=== PATIENT | female | born 1985 | race Caucasian/White ===

== ENCOUNTER 2017-12-26 00:30 | Inpatient (IN) | payer BC, OTHER, SELFPAY ==
[2017-12-26] MEDS ORDERED: Fentanyl 100 MCG/2 ML VIAL ONE ×3 (01:16→04:10)
[2017-12-26] MEDS ORDERED: Midazolam HCl 2 mg/2 ml Vial ONE (01:16)
[2017-12-26] MEDS: CEFAZOLIN/Water 2 GM/20 ML SYRINGE SLOW IVP SCH ×2 (01:20→03:56)
[2017-12-26] MEDS ORDERED: CEFAZOLIN 1 GM VIAL ONE (01:25)
[2017-12-26] MEDS ORDERED: Oxytocin 10 UNITS/ML VIAL ONE ×2 (01:34→09:00)
[2017-12-26 01:47] LABS: Actual Bicarbonate (HCO3a) 20.6 mEq/L (22-26); Base Excess (BEa) -4.9 mEq/L (0 (+/-) 2.5)
[2017-12-26] MEDS ORDERED: Morphine CADD 1 MG/ML CADD IVPB PRN (01:52)
[2017-12-26] MEDS ORDERED: diphenhydrAMINE 50 MG/ML VIAL IVP PRN (01:52)
[2017-12-26] MEDS ORDERED: diphenhydrAMINE 50 MG/ML VIAL IM PRN (01:52)
[2017-12-26] MEDS ORDERED: Zolpidem Tartrate 5 MG TAB PO PRN (01:52)
[2017-12-26] MEDS ORDERED: Naloxone HCl 0.4 mg/ml Vial IV PRN (01:52)
[2017-12-26] MEDS ORDERED: diphenhydrAMINE 25 MG CAP PO PRN (01:52)
[2017-12-26] MEDS ORDERED: Ondansetron HCl/PF 4 MG/2 ML Vial IVP PRN ×3 (01:52→01:58)
[2017-12-26] MEDS ORDERED: Promethazine HCl 25 MG/ML VIAL IM PRN ×2 (01:52→01:58)
[2017-12-26] MEDS ORDERED: Ketorolac Tromethamine 30 MG/ML VIAL ONE ×2 (01:54→15:49)
[2017-12-26] MEDS ORDERED: Ondansetron HCl/PF 4 MG/2 ML Vial ONE ×2 (01:54→15:49)
[2017-12-26] MEDS ORDERED: Misoprostol 200 MCG TAB ONE (01:56)
[2017-12-26] MEDS ORDERED: Meperidine HCl/PF 25 MG/ML VIAL SLOW IVP PRN (01:56)
[2017-12-26] MEDS ORDERED: Lactated Ringer's 1,000 ML IV SCH (01:58)
[2017-12-26] MEDS ORDERED: Bicitra 30 ML UDCUP PO SCH (02:00)
[2017-12-26] MEDS ORDERED: Communication Order-Pharmacy FS SCH (02:00)
[2017-12-26 02:08] LABS: Hemoglobin 9.8 g/dL (12.0-16.0); Mean Corpuscular Hemoglobin 27.3 pg (27.0-31.0); Mean Corpuscular Volume 82.9 fl (81.0-99.0); Mean Platelet Volume 8.2 fL (7.4-10.4); Platelet Count 271 thou/uL (130-400); RBC Distribution Width 15.2 % (11.5-14.5); Red Blood Cell (RBC) Count 3.59 mill/uL (4.20-5.40); White Blood Cell (WBC) Count 23.8 thou/uL (4.8-10.8)
[2017-12-26 02:35] LABS: HIV (1/2) Antibody/Antigen Non-Reactive (NonReactive); Hep B Surf Ag Non-Reactive S/CO (NonReactive)
[2017-12-26] MEDS ORDERED: Meperidine HCl/PF 25 MG/ML VIAL ONE (02:40)
[2017-12-26] MEDS ORDERED: LR / Pitocin 40 units/1000 ml 1,000 ML ONE (03:12)
[2017-12-26] MEDS ORDERED: LR w/ Pitocin 40 units/1000 ML BAG IV SCH (03:15)
[2017-12-26] MEDS ORDERED: HYDROcodone/Acetaminophen 5/325 mg Tablet PO PRN (03:15)
[2017-12-26] MEDS ORDERED: Lanolin Ointment 7 GM TUBE TOP PRN (03:15)
[2017-12-26] MEDS ORDERED: Adacel (T-DAP) 0.5 ML VIAL IM ONE (03:15)
[2017-12-26] MEDS ORDERED: Meperidine HCl/PF 25 MG/ML VIAL SLOW IVP SCH (03:30)
[2017-12-26] MEDS ORDERED: Misoprostol 100 MCG TAB FS SCH (03:45)
[2017-12-26] MEDS ORDERED: Fentanyl 100 MCG/2 ML VIAL SLOW IVP SCH (04:00)
[2017-12-26] MEDS: LR / Pitocin 40 units/1000 ml 40 UNITS/1,000 ML BAG IV SCH ×3 (04:00→19:28)
--- NOTE | 2017-12-26 04:16 | HP ---
DATE OF ADMISSION: 12/26/2017 ADMITTING PHYSICIAN: Reynaldo Osei M.D. CHIEF COMPLAINT: Laboring at home with commercial marketing specialist, cervix swelling. HISTORY OF PRESENT ILLNESS: Ms. Jiménez is a 32-year-old estimated date of confinement 12/21/2017 who presents to the hospital with care by Jennifer Garcia who states that the patient has been laboring for 3 days. She apparently became complete or at least almost with her, she pushed and now her cervix is swollen. She presents to the hospital now for management options. Of note is the fact that of note is the fact that her water has been ruptured for over 24 hours. PAST OBSTETRICAL HISTORY: Includes 2 previous sections. PAST MEDICAL HISTORY: Unremarkable. PAST SURGICAL HISTORY: Two previous C-sections. ALLERGIES: No known allergies. SOCIAL HISTORY: Denies tobacco or alcohol use. MEDICATIONS: vitamins. PHYSICAL EXAMINATION: VITAL SIGNS: Stable. She is afebrile. LUNGS: Chest is clear to auscultation. CARDIOVASCULAR: Regular rate and rhythm. ABDOMEN: Soft and nontender. PELVIC: Cervix is 7 cm dilated and swollen. heart tones are in the 170s. Regular uterine contractions are seen. ASSESSMENT: 1. Term intrauterine in labor. 2. Poor progress. 3. Two previous sections. PLAN: At this time, my advice is to proceed with repeat section. The risks of the procedure including anesthesia, bleeding, infection as well as damage to adjacent organs, requiring repair, removal or transfusion were discussed with her in detail. She wishes to proceed. ASHLEY
--- NOTE | 2017-12-26 04:21 | OP ---
DATE OF PROCEDURE: 12/26/2017 PREOPERATIVE DIAGNOSES: 1. Term intrauterine in labor. 2. Active phase arrest. 3. distress. POSTOPERATIVE DIAGNOSES: 1. Term intrauterine in labor. 2. Active phase arrest. 3. distress. SURGEON: Reynaldo Osei M.D. IMAGING ACCOUNT MANAGER SURGEON: Colleen Lin D.O. ANESTHESIA: General endotracheal. ESTIMATED BLOOD LOSS: 800 mL. COMPLICATIONS: None. FINDINGS: 1. Viable male , weight 8 pounds 10 ounces found in the transverse position with Apgars 6 and 9, thick meconium noted. 2. Normal uterus and tubes and ovaries. PROPHYLAXIS: 2 grams Ancef given just before incision. BRIEF PATIENT DESCRIPTION AND TECHNIQUE: Ms. Jiménez is a patient had been labored by Jennifer Garcia, registered midwife, who presented with labor of 3 days. No progress and reportedly swollen cervix. She was examined, found to have a thick cervix at 7 cm and the baby was noted to be tachycardic in the 170s. The patient requested that I continue to labor her, and I told her that I was uncomfortable with this and recommended that she have her repeat and she would had 2 previous C-sections prior. The registered midwife and the were dissatisfied with this and asked for a second opinion, but it was about at this time the patient had a profound bradycardia and decision was made to proceed with stat . The patient was in agreement with this. TECHNIQUE IN DETAIL: After good general endotracheal anesthesia was achieved, the patient has been prepped prior to that and the abdomen was rapidly opened through a previously existing Pfannenstiel scar. The peritoneal cavity was entered and a bladder flap was made. A transverse incision was made over a thin lower uterine segment. The baby was delivered from the transverse position with thick meconium. The cord was clamped and cut. Cord gases and cord blood were obtained. The baby was placed on the warmer with the aerial gunner superintendent present. Placenta was then removed. The uterus was closed first with a suture of 0 Monocryl followed by interrupted chromic sutures for complete hemostasis. The uterus was initially extremely boggy but responded to Pitocin infusion. The uterus was replaced into the abdominal cavity and the pelvic gutters were thoroughly irrigated. The fascia was then closed using continuous PDS suture. The subcutaneous tissue was thoroughly irrigated and made dry using Bovie coagulation technique. The skin was closed with metal rob. Sponge, lap, and needle counts were correct. The patient tolerated the procedure well and was taken to the recovery room in good condition. ASHLEY
[2017-12-26 04:24] LABS: Syphilis Antibody Nonreactive (Nonreactive); Syphilis Antibody Index 0.04 S/CO (<1.00 Non-Reactive)
[2017-12-26 04:39] VITALS: BMI 33.5
[2017-12-26] MEDS ORDERED: CEFAZOLIN 1 GM VIAL SLOW IVP SCH (06:00)
--- NOTE | 2017-12-26 06:15 | PDOC.PP ---
Post Progress Note Post Day #: DOS Subjective: Resting comfortably after C/S. PO intake tolerated: no Flatus: no Ambulation: no Weight Weight 83.007 kg VSS AF - Physical Examination Respiratory: non-labored breathing Abdominal: no distention Fundus firm & at: below umbilicus Extremities: negative homans (B) Skin: CS incision dry & intact Result Diagrams: 12/26/17 01:29 Additional Labs: Post Labs Blood Type O POSITIVE 12/26/17 01:29 Hep Bs Antigen Non-Reactive S/CO (NonReactive) 12/26/17 01:29 Assessment/Plan - Assessment/Plan Plan: Stable postop. Routine care
[2017-12-26 07:02] LABS: Mean Corpuscular HGB CONC 32.8 g/dL (32.0-36.0); Mean Corpuscular Volume 82.4 fl (81.0-99.0); Mean Platelet Volume 7.6 fL (7.4-10.4); Platelet Count 240 thou/uL (130-400); Red Blood Cell (RBC) Count 2.98 mill/uL (4.20-5.40); White Blood Cell (WBC) Count 21.9 thou/uL (4.8-10.8)
[2017-12-26] MEDS ORDERED: Sodium Chloride 0.9% 500 ML IV SCH (07:45)
[2017-12-26 07:51] LABS: Band 20 % (5-11); Lymphocytes 9 % (21-51); MDiff Complete? YES; Monocytes 8 % (0-10); Neutrophil 63 % (42-75); Polychromasia SLIGHT = 2-3 cells (100X) (0-2/hpf)
[2017-12-26] MEDS: Lactated Ringer's 1,000 ML IV SCH ×3 (07:59→19:28)
[2017-12-26] MEDS: Misoprostol 200 MCG TAB PR SCH ×3 (08:00→19:28)
[2017-12-26] MEDS: CEFAZOLIN 1 GM, Syringe 2.5 ML in Sterile Water 7.5 ML SLOW IVP SCH ×2 (08:08→16:06)
[2017-12-26] MEDS: Docusate Calcium (SURFAK) 240 MG CAP PO SCH ×2 (08:08→22:50)
[2017-12-26] MEDS ORDERED: PHENYLEPHRINE-NS 100 MCG/ML 10 ML SYRINGE ONE (09:00)
[2017-12-26] MEDS ORDERED: PROPOFOL 200 MG/20 ML VIAL ONE ×2 (09:00→15:49)
[2017-12-26] MEDS ORDERED: Succinylcholine Chloride 20 MG/ML 10 ml SYRINGE FS ONE ×2 (09:00→15:49)
[2017-12-26] MEDS: Ketorolac Tromethamine 30 MG/ML VIAL IVP PRN ×2 (10:47→16:20)
[2017-12-26] MEDS: Simethicone Chewable 80 MG TAB PO PRN ×3 (10:47→22:48)
[2017-12-26] MEDS: Acetaminophen/Codeine 30-300mg Tablet PO PRN ×2 (16:05→22:48)
[2017-12-26] MEDS ORDERED: Ibuprofen 800 MG TAB PO SCH (22:45)
[2017-12-26] MEDS: Cepastat Lozenges 1 LOZ PO PRN (23:05)
[2017-12-27] MEDS ORDERED: Sodium Chloride 0.9% 10 ML ONE (00:01)
[2017-12-27] MEDS: Lactated Ringer's 1,000 ML IV SCH ×3 (02:06→19:08)
[2017-12-27] MEDS: LR / Pitocin 40 units/1000 ml 40 UNITS/1,000 ML BAG IV SCH ×3 (05:32→21:26)
[2017-12-27 05:37] LABS: Mean Corpuscular HGB CONC 31.8 g/dL (32.0-36.0); Mean Corpuscular Volume 84.9 fl (81.0-99.0); Mean Platelet Volume 7.4 fL (7.4-10.4); Platelet Count 196 thou/uL (130-400); RBC Distribution Width 15.2 % (11.5-14.5); White Blood Cell (WBC) Count 15.4 thou/uL (4.8-10.8)
[2017-12-27] MEDS: Ibuprofen 800 MG TAB PO SCH ×3 (06:08→21:38)
[2017-12-27] MEDS: Acetaminophen/Codeine 30-300mg Tablet PO PRN ×3 (06:10→19:10)
[2017-12-27] MEDS: Cepastat Lozenges 1 LOZ PO PRN ×2 (06:13→12:40)
--- NOTE | 2017-12-27 08:09 | PRG ---
DATE OF SERVICE: 12/27/2017 PRIMARY OB: Orthotic And Prosthetic Technician, Jennifer Garcia The patient is a 32-year-old G3 now P3 female who presented to Labor and Delivery after arrest of lab or at home and subsequently had a repeat for nonreassuring heart tones. She is now p ostoperative day #1. The patient reports she is having decreased lochia, good pain control. She has not ambulated yet outside her room and has been able to void. The patient denies any chest pain, sh ortness of breath, dizziness or lightheadedness. PHYSICAL EXAMINATION:: VITAL SIGNS: Blood pressure is 89/52, temperature 98.5, pulse is 76, respiratory rate is 16. GENERAL: She appears to be in no acute distress. She is alert and oriented, and cooperative and ple asant to interact with. HEENT: Head is normocephalic, atraumatic. ABDOMEN: Fundus is firm. Incision is clean, dry, and intact. EXTREMITIES: Nontender, nonedematous. Her hemoglobin this morning is 7.0, hematocrit 22.0, platelets 196,000. ASSESSMENT AND PLAN: The patient is a 32-year-old female postop day 1, status post a repeat C-sectio n for nonreassuring heart tones. The patient has a significant anemia at 7 and 22 which is how ever, an appropriate drop from 9.8 after a . The patient is asymptomatic at this time. I nicky brewster counseled her to notify staff should she experience excessive fatigue, shortness of breath, chest pain, dizziness, lightheadedness. We will continue postoperative care. Anticipate discharge in 2-3 days.
[2017-12-27] MEDS: Docusate Calcium (SURFAK) 240 MG CAP PO SCH ×2 (12:34→21:38)
[2017-12-27 14:18] LABS: Hemoglobin 7.7 g/dL (12.0-16.0)
[2017-12-27] MEDS: Simethicone Chewable 80 MG TAB PO PRN (14:34)
--- NOTE | 2017-12-27 21:31 | PDOC.EVN ---
Event Note - Event Note Event Note: Bed check at 2130: last HCT was stable (24). Ordered supplemental oral FE.
[2017-12-28] MEDS: Lactated Ringer's 1,000 ML IV SCH ×2 (03:13→08:52)
[2017-12-28] MEDS: Acetaminophen/Codeine 30-300mg Tablet PO PRN ×3 (03:14→12:12)
[2017-12-28] MEDS: LR / Pitocin 40 units/1000 ml 40 UNITS/1,000 ML BAG IV SCH ×2 (05:37→08:53)
[2017-12-28] MEDS: Ibuprofen 800 MG TAB PO SCH (05:57)
--- NOTE | 2017-12-28 06:44 | PDOC.EVN ---
Event Note - Event Note Event Note: DISCHARGE NOTE Admit date: 12/26/17 Discharge date: 12/28/17 Procedure: emergent repeat CS after failed at ,ky with building inspection engineer; decels. Please see handwritten obstetrical dischrge summary in chart. Home with motrin/tylenol #3. Zulema out Sunday at [facility]
--- NOTE | 2017-12-28 06:47 | PDOC.PP ---
Post Progress Note Post Day #: 2 Subjective: No complaints, requests to go home today Vital Signs (12 hours) Temp Pulse Resp BP Pulse Ox 12/27/17 19:50 98.1 F 83 18 96/56 L 96 Weight Weight 183 lb - Physical Examination General: NAD Cardiovascular: no m/r/g Respiratory: clear to auscultation bilaterally Abdominal: + bowel sounds Extremities: negative homans (B) Skin: CS incision dry & intact (rob in place) Result Diagrams: 12/27/17 14:08 Additional Labs: Post Labs Blood Type O POSITIVE 12/26/17 01:29 Hep Bs Antigen Non-Reactive S/CO (NonReactive) 12/26/17 01:29 (1) Delivery Delivered Code(s): O82 - ENCOUNTER FOR DELIVERY WITHOUT INDICATION Status: Acute - Assessment/Plan No evidence postop complication. Home today. Rob out next Sunday.
[2017-12-28] MEDS ORDERED: Ferrous Fumarate 324 MG TAB PO SCH (08:00)
[2017-12-28] MEDS: Docusate Calcium (SURFAK) 240 MG CAP PO SCH (08:07)
[2017-12-28 08:45] VITALS: BP 101/50; TEMP 97.7
[2017-12-29] MEDS ORDERED: Ibuprofen 800 MG TAB PO SCH (06:00)
== END 2017-12-28 13:55 | disposition home or self-care (01) | DRG 766 ==
LOC: L&D/OP 00:30 → L&D 00:58 → 3SW 05:36
PROVIDERS: ADMIT Obstetrics & Gynecology; ATTEND Obstetrics & Gynecology
PROC: 10D00Z1 Extraction of Products of Conception, Low, Open Approach (ICD-10-PCS; principal; 2017-12-26)
DX: O76 Abnormality in fetal heart rate and rhythm complicating labor and delivery (principal); O34.211 Maternal care for low transverse scar from previous cesarean delivery; O62.1 Secondary uterine inertia; O75.89 Other specified complications of labor and delivery; O66.41 Failed attempted vaginal birth after previous cesarean delivery; Z37.0 Single live birth; Z3A.00 Weeks of gestation of pregnancy not specified
CPT/HCPCS: 36415; 51702; 82805; 85027; 86780; 86850; 86900; 86901; 87340; 87389; 88307; A4216; J0690; J1885; J2175; J2250; J2274; J2405; J2590; J2704; J3010